=== PATIENT | male | born 1950 | race African-American/Black ===

== ENCOUNTER 2017-03-23 20:32 | Inpatient (IN) | payer OTHER, MEDICAID ==
[~2017-03-23] VITALS: Ht 177.8 cm; Wt 135.6 kg
[2017-03-23] MEDS: NACL 0.9% 1,000 ML IV SCH (00:50)
[2017-03-23 20:41] VITALS: BP 158/75
--- NOTE | 2017-03-23 21:05 | NUR ---
PT PLACED IN BED 3 BY EMS.
[2017-03-23] MEDS ORDERED: VANCOMYCIN 1,000 MG in DEXTROSE 5% 250 ML IV ONE (21:40)
[2017-03-23] MEDS ORDERED: LEVOFLOXACIN 750 MG/D5W PREMIX 150 ML IV ONE (21:40)
[2017-03-23] MEDS ORDERED: methylPREDNISolone SS 125 MG in WATER STERILE 2 ML IV ONE (22:15)
--- NOTE | 2017-03-23 22:30 | NUR ---
66Y/M BIBA C/O SOB. ALLERGY TO IBUPROFEN, PMH ASHTMAM DM, HTN, EMPHASEMA. PT IS BROUGHT IN W/ NC 4L, O2 SAT AT 98% RR EVEN AND UNLABORED, DEEP RESPIRATIONS NOTED. PT IS TALKING TO STAFF IN FULL COMPLETE SENTENCES. BL BREATH SOUNDS CLEAR THROUGHOUT. PT IN BED SIDE RAILS UP X2, ER MD AWARE OF PT STATUS.
[2017-03-23] MEDS ORDERED: LISI-420 PO (22:39)
[2017-03-23] MEDS ORDERED: GABA300C PO (22:39)
[2017-03-23] MEDS ORDERED: ACET-2858 PO (22:39)
[2017-03-23 22:50] LABS: HEMATOCRIT 23.7 % (36-52); MEAN CORPUSCULAR HEMOGLOBIN 25 pg (27-31); MEAN CORPUSCULAR HGB CONC 31 g/dL (33-37); MEAN CORPUSCULAR VOLUME 80 fL (80-94); PLATELET COUNT (AUTO) 164 K/uL (140-450); RED BLOOD CELL COUNT(AUTO) 2.95 MIL/uL (4.20-6.10); RED CELL DISTRIBUTION WIDTH 18.3 % (11.6-13.7); WHITE BLOOD COUNT (AUTO) 6.4 K/uL (4.8-10.8)
[2017-03-23] MEDS ORDERED: VANCOMYCIN 1,000 MG VIAL ONE (22:53)
[2017-03-23 22:55] LABS: ALBUMIN 2.9 g/dL (3.4-5.0); ANION GAP 13.2 (8-16); CARBON DIOXIDE 25.2 mmol/L (21-32); CREATININE 3.7 mg/dL (0.7-1.3); TOTAL BILIRUBIN 0.1 mg/dL (0.0-1.0)
[2017-03-23 23:06] LABS: POTASSIUM 5.4 mmol/L (3.5-5.1)
[2017-03-23] MEDS ORDERED: ACETAMINOPHEN 325 MG TAB PO PRN (23:10)
[2017-03-23] MEDS ORDERED: DEXTROSE 50% 50 ML SYR IVP PRN (23:10)
[2017-03-23] MEDS ORDERED: ONDANSETRON 4 MG/2 ML VIAL IVP PRN (23:10)
[2017-03-23] MEDS ORDERED: ALBUTEROL SULFATE/IPRATROPIU 3 ML SOL IH PRN (23:10)
[2017-03-23 23:18] LABS: HEMOGLOBIN 7.4 g/dL (12.0-18.0)
[2017-03-23 23:19] LABS: EOSINOPHILS % (MANUAL) 2 % (0-4); LYMPHOCYTES % (MANUAL) 8 % (20-46); MONOCYTES % (MANUAL) 6 % (5-12)
--- NOTE | 2017-03-23 23:30 | NUR ---
PT IN BED, TALKING TO STAFF, STATES HE IS NOT IN ANY PAIN, DENIES SOB WHILE ON OXYGEN, PT ELAINE LOCKWO[facility], WILL TRANSPORT TO FLOOR WHEN BED AVAILABLE.
[2017-03-23 23:43] LABS: APPEARANCE,URINE SL CLOUDY (CLEAR); BILIRUBIN,URINE NEGATIVE (NEGATIVE); BLOOD, URINE 3+ (NEGATIVE); COLOR,URINE YELLOW (YELLOW); LEUKOCYTE ESTERASE ,URINE NEGATIVE (NEGATIVE); NITRITE, URINE NEGATIVE (NEGATIVE); UGLUCOSE NEGATIVE (NEGATIVE)
[2017-03-23 23:46] LABS: PROTHROMBIN TIME 11.4 secs (10.8-13.4)
[2017-03-23 23:52] LABS: FREE T4 (FREE THYROXINE) 0.75 ng/dL (0.76-1.46); MAGNESIUM 1.3 mg/dL (1.8-2.4); PHOSPHORUS 4.6 mg/dL (2.5-4.9); THYROID STIMULATING HORMONE 0.82 uIU/mL (0.34-3.74)
[2017-03-24] VITALS: BP 135/65
[2017-03-24] LABS: RBC,URINE TOO NUMEROUS TO COUN /HPF (0-5); URINE AMORPHOUS URATE 2+ /HPF (None Seen); WBC,URINE 0-5 (RARE) /HPF (0-5)
[2017-03-24 00:01] LABS: HYALINE CASTS, URINE 0-10 /LPF (None Seen)
--- NOTE | 2017-03-24 00:05 | NUR ---
ADMITTED PT FROM ER VIA [facility]. RECEIVED REPORT FROM ER NURSE AT BEDSIDE. AAOX4. IV TO RIGHT AC WITH LEVAQUIN AT 100ML/HR. NO DISTRESS NOTED. ORIENTED PT TO THE ROOM. DISCUSSED PLAN OF CARE, PT VERBALIZED UNDERSTANDING. SAFETY PRECAUTION IN PLACE. CALL LIGHT WITHIN REACH. WILL CONTINUE TO MONITOR.
--- NOTE | 2017-03-24 00:10 | NUR ---
RECEIVED CRITICAL LAB TROPONIN 0.382. REPORTED TO DR. POWELL. TO SEE PT.
[2017-03-24 00:12] LABS: BARBITURATE, URINE NEG. ng/ml (NEG <=200); BENZODIAZEPINE, URINE NEG. ng/mL (NEG <=200); CANNABINOID, URINE NEG. ng/mL (NEG <=50); COCAINE, URINE NEG. ng/mL (NEG <=300); OPIATE, URINE NEG. ng/mL (NEG <=2000); PHENCYCLIDINE SCREEN,URINE NEG. ng/mL (NEG <=25)
[2017-03-24] MEDS ORDERED: HEPARIN PER PHARMACY MC PRN (00:15)
--- NOTE | 2017-03-24 00:20 | NUR ---
FLOOR NURSE GIVEN VANCOMYCIN TO START ON FLOOR WHEN LEVAQUIN IS DONE RUNNING.
--- NOTE | 2017-03-24 00:20 | NUR ---
Patient will be admitted to care of [facility] . Admited to TELE. Will go to room 123B. Belongings list completed. Report to BECCA.
--- NOTE | 2017-03-24 00:45 | NUR ---
PT C/O PAIN TO IV SITE RIGHT AC. D/C IV LINE. IV CANNULA INTACT. INSERTED NEW IV LINE TO RIGHT HAND. GOOD BLOOD RETURN AND FLUSH. PROCEDURE TOLERATED WELL.
[2017-03-24] MEDS ORDERED: PIPERACILLIN/TAZOBACTAM 3.375 GM VIAL IV ONE (01:15)
[2017-03-24] MEDS: PIPER/TAZO 3.375GM/D5W PREMIX 50 ML IV SCH ×4 (01:23→17:32)
--- NOTE | 2017-03-24 01:50 | NUR ---
INSERTED IV LINE TO RIGHT THUMB FOR HEPARIN DRIP. GOOD BLOOD RETURN AND FLUSH. PROCEDURE TOLERATED WELL.
[2017-03-24] MEDS: hePARIN / DEXT 5% PREMIX 250 ML IV SCH ×3 (02:20→21:11)
[2017-03-24 04:00] VITALS: BP 138/88
--- NOTE | 2017-03-24 04:00 | NUR ---
PT ACCIDENTALLY PULLED OUT IV LINE TO RIGHT HAND. CANNULA INTACT. REINSERTED NEW IV LINE TO RIGHT HAND #22G. GOOD BLOOD RETURN AND FLUSH. PT TOLERATED PROCEDURE WELL.
[2017-03-24] MEDS: methylPREDNISolone SS 125 MG/2 ML VIAL IVP SCH ×3 (04:25→21:16)
--- NOTE | 2017-03-24 04:30 | NUR ---
PT REFUSED SCD'S. EXPLAINED THE USE/BENEFITS OF USING SCD'S BUT STILL PT REFUSED.
[2017-03-24] MEDS: INSULIN LISPRO SLIDING SCALE 100 UNITS/ML VIAL SUBQ PRN ×4 (06:25→21:13)
[2017-03-24 06:41] LABS: CARBON DIOXIDE 23.7 mmol/L (21-32); CREATININE 3.8 mg/dL (0.7-1.3)
--- NOTE | 2017-03-24 06:45 | NUR ---
REPORTED MAG LEVEL 1.[address] JUAREZ. ORDERED MAG OX 800 MG PO ONCE. ORDER CARRIED OUT.
[2017-03-24 06:46] LABS: HEMATOCRIT 24.1 % (36-52); HEMOGLOBIN 7.4 g/dL (12.0-18.0); MEAN CORPUSCULAR HEMOGLOBIN 25 pg (27-31); MEAN CORPUSCULAR HGB CONC 31 g/dL (33-37); MEAN CORPUSCULAR VOLUME 80 fL (80-94); PLATELET COUNT (AUTO) 160 K/uL (140-450); RED BLOOD CELL COUNT(AUTO) 3.01 MIL/uL (4.20-6.10); RED CELL DISTRIBUTION WIDTH 18.3 % (11.6-13.7); WHITE BLOOD COUNT (AUTO) 6.9 K/uL (4.8-10.8)
[2017-03-24 06:49] LABS: CHOL/HDL RATIO 2.2 (1-4.5); MAGNESIUM 1.2 mg/dL (1.8-2.4); PHOSPHORUS 4.6 mg/dL (2.5-4.9)
[2017-03-24] MEDS: BLOOD GLUCOSE MONITORING 1 DEV DEV FS SCH ×4 (07:00→21:00)
--- NOTE | 2017-03-24 07:05 | NUR ---
ENDORSED PT TO DAY SHIFT NURSE. PT IN STABLE CONDITION.
--- NOTE | 2017-03-24 07:06 | NUR ---
RECEIVED REPORT FROM TALLOW REFINER NURSE. PATIENT IN STABLE CONDITION, NO DISTRESS NOTED. PATIENT IS SITTING IN BED WATCHING TV. AAOX4, CALM, COOPERATIVE, SKIN COLOR APPROPRIATE TO ETHNICITY, WARM TO TOUCH. RESPIRATIONS EVEN, UNLABORED, ON O2 4L/MIN VIA NC. SKIN IS INTACT THROUGHOUT BODY. IV SITES ARE INTACT, PATENT, AND INFUSING IVF AND HEPARIN DRIP PER ORDERS. LUNGS DIMINISHED ON ALL LOBES. ABDOMEN SOFT, OBESE. PATIENT ABLE TO AMBULATE TO BEDSIDE COMMODE AND BACK TO BED WITH ASSISTANCE. REVIEWED PLAN OF CARE WITH PATIENT. PATIENT VERBALIZED UNDERSTANDING. SAFETY MEASURES IN PLACE, CALL LIGHT WITHIN REACH. WILL CONTINUE TO MONITOR.
[2017-03-24] MEDS: ALBUTEROL SULFATE/IPRATROPIU 3 ML SOL IH SCH ×3 (07:27→18:37)
[2017-03-24 07:53] LABS: POTASSIUM 6.7 mmol/L (3.5-5.1)
[2017-03-24 08:00] VITALS: BP 149/85
[2017-03-24] MEDS ORDERED: MAGNESIUM OXIDE 400 MG TAB PO SCH (08:00)
[2017-03-24 08:26] LABS: LYMPHOCYTES % (MANUAL) 18 % (20-46)
[2017-03-24 08:27] LABS: MONOCYTES % (MANUAL) 7 % (5-12)
--- NOTE | 2017-03-24 08:45 | NUR ---
PT REFUSED INCENTIVE SPIROMETER.
[2017-03-24] MEDS ORDERED: LISINOPRIL 20 MG TAB PO SCH (09:00)
[2017-03-24] MEDS: LACTOBACILLUS RHAMNOSUS GG 1 EACH CAP PO SCH (09:05)
[2017-03-24] MEDS: ATORVASTATIN 20 MG TAB PO SCH (09:05)
[2017-03-24] MEDS: DOCUSATE SODIUM 100 MG GELCAP PO SCH ×2 (09:05→21:17)
[2017-03-24] MEDS: GABAPENTIN 300 MG CAP PO SCH ×3 (09:06→16:56)
[2017-03-24] MEDS: METOPROLOL 25 MG TAB PO SCH ×2 (09:06→21:17)
[2017-03-24] MEDS: NACL 0.9% 1,000 ML IV SCH ×2 (09:07→19:08)
--- NOTE | 2017-03-24 09:10 | NUR ---
PATIENT SITTING IN BED WATCHING TV. NO DISTRESS NOTED. DENIES ANY PAIN. ABLE TO GET OUT OF BED AND TO THE BEDSIDE COMMODE WITH ASSISTANCE. ASSISTED PATIENT IN CHANGING GOWNS. SCHEDULED MEDICATIONS DUE GIVEN. SAFETY MEASURES IN PLACE, CALL LIGHT WITHIN REACH. WILL CONTINUE TO MONITOR.
--- NOTE | 2017-03-24 09:43 | NUR ---
PATIENT HAS BEEN SCREENED AND CATEGORIZED HIGH NUTRITION RISK. PATIENT WILL BE SEEN WITHIN 1-2 DAYS OF ADMISSION. -03/24/[address]
--- NOTE | 2017-03-24 11:00 | NUR ---
RADIOLOGIST AT BEDSIDE PERFORMING ULTRASOUND. WILL CONTINUE TO MONITOR.
--- NOTE | 2017-03-24 11:10 | NUR ---
LAB CALLED TO REPORT PTT:60.1 ON 0820 LAB DRAW THIS MORNING. PHARMACY CHANGED HEPARIN DRIP PROTOCOL TO ACS PROTOCOL INSTEAD OF DVT PROTOCOL SINCE PATIENT DOES NOT HAVE DVT. NOTIFIED PHARMACY OF MOST RECENT PTT VALUE. CHANGED HEPARIN DRIP TO 1000 UNITS/HR, 10 ML/HR PER ISHMAEL IN PHARMACY. SAFETY MEASURES IN PLACE, CALL LIGHT WITHIN REACH. WILL CONTINUE TO MONITOR.
[2017-03-24 12:00] VITALS: BP 158/73
--- NOTE | 2017-03-24 12:40 | NUR ---
PATIENT SITTING IN BED WATCHING TV. NO DISTRESS NOTED. COMPLAINS OF LOW BACK PAIN /. WILL MEDICATE WITH NORCO PER ORDERS. SCHEDULED MEDICATIONS DUE GIVEN. SAFETY MEASURES IN PLACE, CALL LIGHT WITHIN REACH. WILL CONTINUE TO MONITOR.
[2017-03-24] MEDS: HYDROcodone/APAP 10/325 MG 1 TAB TAB PO PRN (13:00)
--- NOTE | 2017-03-24 13:40 | NUR ---
RADIOLOGY CALLED FOR A CRITICAL RESULT FOR VENOUS ULTRASOUND. NOTIFIED DR. JUAREZ AND DR. JUAREZ TO SEE PATIENT. WILL CONTINUE TO MONITOR.
--- NOTE | 2017-03-24 15:23 | NUR ---
03/24/17 RD INITIAL ASSESSMENT COMPLETED PLEASE REFER TO NUTRITION ASSESSMENT UNDER CARE ACTIVITY FOR ESTIMATED NUTRITIONAL NEEDS. 1.PT TO CONTINUE WITH 60 GM CCHO DIET 2.RD TO FOLLOW-UP 2-3 DAYS, HIGH RISK MARIA DEL CARMEN [address]
[2017-03-24 16:00] VITALS: BP 153/77
--- NOTE | 2017-03-24 16:45 | NUR ---
PATIENT LYING IN BED SLEEPING, AROUSABLE BY VOICE. NO DISTRESS NOTED. DENIES ANY PAIN CONDITION UNCHANGED. SCHEDULED MEDICATIONS DUE. WILL CONTINUE TO MONITOR.
--- NOTE | 2017-03-24 17:30 | NUR ---
DR. ROJAS AT BEDSIDE REVIEWING PLAN OF CARE WITH PATIENT. SCHEDULED MEDICATIONS DUE GIVEN. WILL CONTINUE TO MONITOR.
[2017-03-24] MEDS ORDERED: SODIUM POLYSTYRENE 15 GM/60 ML UDBTL PO SCH ×2 (18:00→23:35)
[2017-03-24] MEDS ORDERED: DEXTROSE 50% 50 ML SYR IVP SCH (18:00)
[2017-03-24] MEDS ORDERED: CALCIUM GLUCONATE 500 MG TAB PO SCH (18:00)
[2017-03-24] MEDS ORDERED: INSULIN LISPRO 100 UNITS/ML VIAL SUBQ SCH (18:00)
[2017-03-24] MEDS ORDERED: CALCIUM GLUCONATE 10% 1,000 MG in DEXTROSE 5% 50 ML IV SCH (18:45)
[2017-03-24] MEDS ORDERED: CALCIUM GLUCONATE 10% 1,000 MG in NACL 0.9% 100 ML IV SCH (18:45)
--- NOTE | 2017-03-24 19:00 | NUR ---
NEW ORDERED MEDICATIONS BY DR. JUAREZ ADMINISTERED PER ORDERS. PATIENT TOLERATED WELL. PAIN WITHIN TOLERABLE AT THIS TIME. SAFETY MEASURES IN PLACE, CALL LIGHT WITHIN REACH. WILL CONTINUE TO MONITOR.
--- NOTE | 2017-03-24 19:20 | NUR ---
GAVE REPORT TO MATERIALS ANALYST NURSE FOR CONTINUITY OF CARE. PATIENT IN STABLE CONDITION.
--- NOTE | 2017-03-24 19:25 | NUR ---
RECEIVED REPORT FROM DAY SHIFT NURSE. PT IN BED WATCHING TV. NO C/O PAIN OR DISCOMFORT. IV TO RIGHT HAND WITH NS 100ML/HR INFUSING WELL. IV TO RIGHT THUMB WITH HEPARIN DRIP AT 10ML/HR, INFUSING WELL. DISCUSSED PLAN OF CARE, PT VERBALIZED UNDERSTANDING. CALL LIGHT WITHIN REACH. WILL CONTINUE TO MONITOR.
[2017-03-24 20:00] VITALS: BP 148/82
[2017-03-24 20:24] LABS: ANION GAP 12.7 (8-16); CARBON DIOXIDE 24.1 mmol/L (21-32); CREATININE 3.8 mg/dL (0.7-1.3); POTASSIUM 5.8 mmol/L (3.5-5.1)
[2017-03-24] MEDS: INSULIN DETEMIR 100 UNITS/ML 10 ML VIAL SUBQ SCH (21:14)
--- NOTE | 2017-03-24 21:25 | NUR ---
STARTED NEW BAG OF HEPARIN DRIP. CALLED DR. POWELL REGARDING HEPARIN DRIP RATE. PER DR. POWELL, CONTINUE CURRENT DRIP 10 ML/HR AND WILL WAIT FOR DR. JENKINS TO SEE THE PT.
--- NOTE | 2017-03-24 22:30 | NUR ---
PT IN BED, WATCHING TV. PT ASKED FOR SNACK. SNACK PROVIDED TO PT. CALL LIGHT WITHIN REACH.
[2017-03-25] VITALS (7 sets, daily range): BP systolic 136–168; BP diastolic 68–93
--- NOTE | 2017-03-25 01:20 | NUR ---
PT SLEEPING. NO S/S PAIN OR DISCOMFORT. CALL LIGHT WITHIN REACH.
--- NOTE | 2017-03-25 04:05 | NUR ---
PT AWAKE AND WENT TO BEDSIDE COMMODE ASSISTED BY TAP AND DIE MAKER TECHNICIAN. NO C/O PAIN. NO SOB NOTED. CALL LIGHT WITHIN REACH.
[2017-03-25] MEDS: methylPREDNISolone SS 40 MG/ML VIAL IVP SCH ×3 (05:24→20:29)
[2017-03-25] MEDS: NACL 0.9% 1,000 ML IV SCH ×2 (05:24→15:08)
[2017-03-25] MEDS: BLOOD GLUCOSE MONITORING 1 DEV DEV FS SCH ×4 (05:47→20:29)
--- NOTE | 2017-03-25 05:50 | NUR ---
BLOOD SUGAR CHECKED 148. NO INSULIN COVERAGE NEEDED.
[2017-03-25] MEDS: ALBUTEROL SULFATE/IPRATROPIU 3 ML SOL IH SCH ×3 (07:04→19:00)
[2017-03-25 07:19] LABS: HEMATOCRIT 22.9 % (36-52); HEMOGLOBIN 7.3 g/dL (12.0-18.0); MEAN CORPUSCULAR HEMOGLOBIN 25 pg (27-31); MEAN CORPUSCULAR HGB CONC 32 g/dL (33-37); MEAN CORPUSCULAR VOLUME 79 fL (80-94); PLATELET COUNT (AUTO) 213 K/uL (140-450); RED BLOOD CELL COUNT(AUTO) 2.89 MIL/uL (4.20-6.10); RED CELL DISTRIBUTION WIDTH 18.1 % (11.6-13.7); WHITE BLOOD COUNT (AUTO) 13.8 K/uL (4.8-10.8)
--- NOTE | 2017-03-25 07:20 | NUR ---
ENDORSED PT TO DAY SHIFT NURSE. PT IN STABLE CONDITION.
[2017-03-25 07:34] LABS: ANION GAP 15.1 (8-16); CARBON DIOXIDE 22.9 mmol/L (21-32); CREATININE 3.5 mg/dL (0.7-1.3)
[2017-03-25 08:12] LABS: LYMPHOCYTES % (MANUAL) 7 % (20-46); MONOCYTES % (MANUAL) 7 % (5-12)
[2017-03-25] MEDS: hePARIN / DEXT 5% PREMIX 250 ML IV SCH (09:18)
--- NOTE | 2017-03-25 09:30 | NUR ---
FAXED INITIAL REVIEW TO [phone]. CALLED [employer] AND WAS TOLD TO FAX TO EITHER [phone] OR [phone], THE CM IS LILIANA [phone].
[2017-03-25] MEDS: ATORVASTATIN 20 MG TAB PO SCH (09:38)
[2017-03-25] MEDS: GABAPENTIN 300 MG CAP PO SCH ×3 (09:38→17:39)
[2017-03-25] MEDS: LACTOBACILLUS RHAMNOSUS GG 1 EACH CAP PO SCH (09:38)
[2017-03-25] MEDS: METOPROLOL 25 MG TAB PO SCH (09:38)
[2017-03-25] MEDS: DOCUSATE SODIUM 100 MG GELCAP PO SCH ×2 (09:39→20:28)
--- NOTE | 2017-03-25 09:41 | NUR ---
PATIENT LYING IN BED WATCHING TV. NO DISTRESS NOTED. DENIES ANY PAIN AT THIS TIME. SCHEDULED MEDICATIONS DUE GIVEN. HEPARIN DRIP ADJUSTED PER PROTOCOL. SAFETY MEASURES IN PLACE, CALL LIGHT WITHIN REACH. WILL CONTINUE TO MONITOR.
[2017-03-25 10:07] LABS: FOLIC ACID 7.9 ng/mL (>3.0)
[2017-03-25] MEDS ORDERED: CALCIUM GLUCONATE 500 MG TAB PO SCH (11:15)
[2017-03-25] MEDS: HYDROcodone/APAP 10/325 MG 1 TAB TAB PO PRN ×3 (11:24→23:48)
[2017-03-25] MEDS: INSULIN LISPRO SLIDING SCALE 100 UNITS/ML VIAL SUBQ PRN (11:33)
[2017-03-25] MEDS ORDERED: CALCIUM GLUCONATE 10% 1,000 MG in NACL 0.9% 100 ML IV SCH (12:30)
--- NOTE | 2017-03-25 13:00 | NUR ---
PATIENT OFF UNIT AT RADIOLOGY FOR CT SCAN OF ABD/PELVIS. WILL CONTINUE TO MONITOR.
[2017-03-25] MEDS: FERRIC GLUCONATE 125 MG in NACL 0.9% 100 ML IV SCH (13:20)
[2017-03-25] MEDS: SODIUM POLYSTYRENE 15 GM/60 ML UDBTL PO SCH ×2 (13:21→17:40)
--- NOTE | 2017-03-25 13:43 | NUR ---
PATIENT BACK FROM RADIOLOGY FOR CT ABDOMEN/PELVIS. DENNISON CATHETER INSERTED, NO RESISTANCE MET THROUGHOUT INSERTION. DRAINING YELLOW/ORANGE URINE, THEN 10 MINUTES LATER DRAINING BLOOD IN URINE. NOTIFIED DR. ANN MD SAW PATIENT. AWAITING FOR LAB SPECIALIST CONSULT LATER TODAY. WILL CONTINUE TO MONITOR.
--- NOTE | 2017-03-25 15:00 | NUR ---
PATIENT LYING IN BED SLEEPING, AROUSABLE BY VOICE. NO DISTRESS NOTED. DENIES ANY PAIN AT THIS TIME. SAFETY MEASURES IN PLACE, CALL LIGHT WITHIN REACH. WILL CONTINUE TO MONITOR.
--- NOTE | 2017-03-25 17:00 | NUR ---
ASSISTED PATIENT BACK FROM BEDSIDE COMMODE AND BACK TO BED. SAFETY MEASURES IN PLACE, CALL LIGHT WITHIN REACH. WILL CONTINUE TO MONITOR.
--- NOTE | 2017-03-25 18:00 | NUR ---
TOUR BUS DRIVER CONSULT AT BEDSIDE. WILL CONTINUE TO MONITOR.
--- NOTE | 2017-03-25 19:15 | NUR ---
GAVE REPORT TO RISK REDUCTION COUNSELOR NURSE FOR CONTINUITY OF CARE. PATIENT IN STABLE CONDITION.
[2017-03-25 19:16] LABS: ANION GAP 13.7 (8-16); CARBON DIOXIDE 24.9 mmol/L (21-32); CREATININE 3.4 mg/dL (0.7-1.3); POTASSIUM 5.6 mmol/L (3.5-5.1)
--- NOTE | 2017-03-25 19:20 | NUR ---
RECEIVE DPT IN STABLE CONDITION FROM AM NURSE. ON TELE MONITOR. AWAKE,ALERT AND ORIENTED X4. ON O23L/NC. O2 SAT 100%. WITH OCCASIONAL NON PRODUCTIVE COUGH. LUNGS SOUNDS DIMINISHED. WITH GEN WEAKNESS BLE. CAN BE UP WITH ASSISTANCE TO THE BSC. WITH HL ON RT HAND #22 AND RT THUMB #22. DENNISON CATHETER DRAINING WITH BLOODY URINE. WITH SMALL BLOOD CLOTS. PLAN OF CARE DISCUSSED WITH PT AND VERBALIZED UNDERSTANDING. BED ON LOW POSITION, FREQUENT ROUNDS NEEDED . CALL LIGHT PLACED WITHIN EASY REACH. WILL CONTINUE TO MONITOR.
--- NOTE | 2017-03-25 19:35 | NUR ---
DR. TURNER HERE .HE SAID PT STILL NEED TO CONTINUE THE HEPARIN DRIP . SO PAGED DR. POWELL SO SHE CAN TALKED TO DR. TURNER.
--- NOTE | 2017-03-25 19:53 | NUR ---
1899 PATIENT REFUSED HHNTX. PT SHOWED SOB AND BS ARE WHEEZING AND DECREASED AT BASES. I LET DR TURNER KNOW PT REFUSED HHNTX
[2017-03-25] MEDS ORDERED: hePARIN / DEXT 5% PREMIX 250 ML IV SCH ×2 (20:00→22:25)
[2017-03-25] MEDS ORDERED: HEPARIN PER PHARMACY MC PRN (20:00)
--- NOTE | 2017-03-25 20:30 | NUR ---
STARTED A NEW IV ACCESS ON THE LT WRIST #24. BUT AFTER A WHILE PT GOT UP AND ACCIDENTALLY PULLED OUT.
[2017-03-25] MEDS: INSULIN DETEMIR 100 UNITS/ML 10 ML VIAL SUBQ SCH (21:24)
[2017-03-25] MEDS ORDERED: LEVOFLOXACIN 500 MG/D5W PREMIX 100 ML IV SCH (22:00)
--- NOTE | 2017-03-25 22:00 | NUR ---
PT ACCIDENTALLY PULLED OUT IV ON LT WRIST WHILE GETTING UP IN BED. ANTIBIOTICS GIVEN ON THE RT THUMB. INFUSING AT THIS TIME.
--- NOTE | 2017-03-25 23:00 | NUR ---
CLARIFIED WITH PHARMACY REGARDING THE HEPARIN BOLUS. THEY WILL ORDER A X1 ORDERED.
[2017-03-26] MEDS: NACL 0.9% 1,000 ML IV SCH ×3 (01:08→21:08)
--- NOTE | 2017-03-26 01:22 | NUR ---
PT HAS BEEN HAVING LOOSE BM. HAS BEEN ASSISTED TO BSC. CLEANED AND KEPT DRY.
--- NOTE | 2017-03-26 01:34 | NUR ---
TALKED TO DR. POWELL REGARDING PT HEPARIN DRIP AND PT IS HAVING HEMATURIA ON THE DENNISON OUTPUT. SHE SAID SHE IS AWARE OF IT AND IT IS OK TO CONTINUE WITH THE HEPARIN DRIP.
--- NOTE | 2017-03-26 02:03 | NUR ---
THE ONLY IV ACCESS ON THE RT THUMB #22. WAS PULLED OUT. WILL TRY TO START A NEW IV ACCESS.
--- NOTE | 2017-03-26 03:37 | NUR ---
TALKED TO DR. POWELL ABOUT THE DIFFICULTY STARTING A NEW IV ACCESS ON PT. HE SAID OK TO START IV ON THE FOOT. SHE WILL MAKE AN ORDER.
--- NOTE | 2017-03-26 04:00 | NUR ---
DENNISON CATH WAS FLUSHED WITH NS Q 4HRS, URINE OUTPUT IS STILL BLOOD TINGED BUT NO CLOTS NOTED. NO C/O ANY PAIN .
--- NOTE | 2017-03-26 04:05 | NUR ---
ORDERED , GARCIA ABLE TO START IV ACCESS ON THE RT FOOT G#22. CLEAR AND PATENT. HEPARIN DRIP RESTARTED ON THIS IV SITE.
[2017-03-26 04:50] VITALS: BP 180/88
[2017-03-26] MEDS: amLODIPine 5 MG TAB PO SCH (05:39)
--- NOTE | 2017-03-26 05:39 | NUR ---
BP ELEVATED 180/88. NORVASC 5MG PO GIVEN ORDERED.
[2017-03-26] MEDS: BLOOD GLUCOSE MONITORING 1 DEV DEV FS SCH ×4 (06:07→20:33)
--- NOTE | 2017-03-26 06:07 | NUR ---
BLOOD SUGAR WAS CHECKED RESULT 140. NO INSULIN NEEDED.
[2017-03-26] MEDS: ALBUTEROL SULFATE/IPRATROPIU 3 ML SOL IH SCH ×3 (06:58→18:29)
--- NOTE | 2017-03-26 07:18 | NUR ---
ENDORSED PT IN STABLE CONDITION TO AM NURSE.
--- NOTE | 2017-03-26 07:20 | NUR ---
RECEIVED PATIENT REPORT AT BEDSIDE. PATIENT IS IN STABLE CONDITION DURING THIS TIME. PATIENT ON 2 LITERS O2 WITH A SATURATION OF 96%. PATIENT SHOWS NO SIGNS OF RESPIRATORY DISTRESS OR CHEST PAIN. HEPARIN DRIP 1000 U / HR ON THE RIGHT FOOT. PATIENT ON TELE MONITOR. PATIENT HAS DENNISON CATHETER IN PLACE, DRAINING PINK-TINGED URINE OUTPUT. BED LOWERED AND CALL LIGHT IN REACH. WILL CONTINUE TO MONITOR PATIENT.
[2017-03-26 07:53] LABS: ANION GAP 11.4 (8-16); CARBON DIOXIDE 27.5 mmol/L (21-32); CREATININE 3.1 mg/dL (0.7-1.3)
[2017-03-26 07:56] LABS: HEMATOCRIT 23.5 % (36-52); HEMOGLOBIN 7.4 g/dL (12.0-18.0); MEAN CORPUSCULAR HEMOGLOBIN 26 pg (27-31); MEAN CORPUSCULAR HGB CONC 32 g/dL (33-37); MEAN CORPUSCULAR VOLUME 81 fL (80-94); PLATELET COUNT (AUTO) 209 K/uL (140-450); RED BLOOD CELL COUNT(AUTO) 2.89 MIL/uL (4.20-6.10); RED CELL DISTRIBUTION WIDTH 18.5 % (11.6-13.7); WHITE BLOOD COUNT (AUTO) 11.2 K/uL (4.8-10.8)
[2017-03-26 08:00] VITALS: BP 150/87
[2017-03-26] MEDS: ATORVASTATIN 20 MG TAB PO SCH (08:26)
[2017-03-26] MEDS: LACTOBACILLUS RHAMNOSUS GG 1 EACH CAP PO SCH (08:26)
[2017-03-26] MEDS: GABAPENTIN 300 MG CAP PO SCH ×3 (08:27→16:07)
[2017-03-26] MEDS: DOCUSATE SODIUM 100 MG GELCAP PO SCH ×2 (08:27→20:33)
[2017-03-26] MEDS: CARVEDILOL 3.125 MG TAB PO SCH ×2 (08:27→20:34)
[2017-03-26 08:30] LABS: POTASSIUM 5.9 mmol/L (3.5-5.1)
[2017-03-26] MEDS ORDERED: CARVEDILOL 3.125 MG TAB PO SCH (09:00)
[2017-03-26 10:20] LABS: EOSINOPHILS % (MANUAL) 2 % (0-4); LYMPHOCYTES % (MANUAL) 5 % (20-46); MONOCYTES % (MANUAL) 10 % (5-12)
--- NOTE | 2017-03-26 10:57 | NUR ---
IV LINE ON THE RIGHT FOOT ACCIDENTALLY PULLED OUT BY THE PATIENT. WILL TRY TO ESTABLISH A NEW LINE
[2017-03-26] MEDS ORDERED: MAGNESIUM CITRATE 300 ML BTL PO SCH (11:00)
[2017-03-26 12:00] VITALS: BP 153/85
[2017-03-26] MEDS: FERRIC GLUCONATE 125 MG in NACL 0.9% 100 ML IV SCH (12:58)
[2017-03-26] MEDS ORDERED: hePARIN / DEXT 5% PREMIX 250 ML IV SCH (13:00)
[2017-03-26] MEDS: INSULIN LISPRO SLIDING SCALE 100 UNITS/ML VIAL SUBQ PRN (13:01)
--- NOTE | 2017-03-26 13:15 | NUR ---
PT REFUSED HHN TX
[2017-03-26] MEDS: CALCIUM GLUCONATE 10% 1,000 MG in NACL 0.9% 100 ML IV SCH ×2 (15:06→20:31)
--- NOTE | 2017-03-26 15:27 | NUR ---
CM NOTE CONCURRENT REVIEW FAXED TO [phone], ATTN: LILIANA #[phone].
[2017-03-26 16:00] VITALS: BP 177/89
--- NOTE | 2017-03-26 16:00 | NUR ---
NEW IV LINE STARTED ON THE LEFT HAND. PER MARCO FROM PHARMACY. RESTART HEPARIN DRIP WITH INITIAL BOLUS AND INITIAL RATE. WILL INFORM THE DOCTOR
[2017-03-26] MEDS ORDERED: hydrALAZINE 20 MG/ML VIAL IVP SCH (17:30)
--- NOTE | 2017-03-26 19:10 | NUR ---
GAVE PATIENT REPORT AT BEDSIDE AND ENDORSED CARE TO INCOMING PASSPORT APPLICATION EXAMINER NURSE. PATIENT IS IN STABLE CONDITION. PATIENT SHOWS NO SIGNS OF RESPIRATORY DISTRESS.
--- NOTE | 2017-03-26 19:20 | NUR ---
RECEIVED PT IN STABLE CONDITION FROM AM NURSE. AWAKE, ALERT AND ORIENTED X4. ON TELE MONITOR. NO C/O ANY PAIN AT THIS TIME. WITH IV ACCESS ON LT HAND #22 AND RT AC #22. WILL CONTINUE IVF WHEN PT SETTLED IN BED. SKIN INTACT. WITH DENNISON CATH DRAINING TO VERY LIGHT PINK TINGED URINE, NO CLOTS NOTED. PLAN OF CARE DISCUSSED AND VERBALIZED UNDERSTANDING. BED ON LOW POSITION . CALL LIGHT PLACED WITHIN EASY REACH. FREQUENT ROUNDS NEEDED. WILL CONITNUE TO MONITOR.
[2017-03-26 20:00] VITALS: BP 164/76
[2017-03-26] MEDS: HYDROcodone/APAP 10/325 MG 1 TAB TAB PO PRN (20:40)
[2017-03-26] MEDS: INSULIN DETEMIR 100 UNITS/ML 10 ML VIAL SUBQ SCH (20:43)
--- NOTE | 2017-03-26 20:43 | NUR ---
BLOOD SUGAR 137. LEVEMIR INSULIN DUE GIVEN SUB Q. PROVIDED WITH SOME SNACKS. WILL CONTINUE TO MONITOR.
--- NOTE | 2017-03-26 22:00 | NUR ---
PT IS ASLEEP. NO S/S OF ANY DISCOMFORT NOR DISTRESS NOTED. ON O22L/NC.
[2017-03-26 23:50] VITALS: BP 118/62
--- NOTE | 2017-03-27 00:50 | NUR ---
DENNISON TUBING DISCONNECTED , TUBE CONNECT BACK . URINE OUTPUT STILL CLEAR AND NO CLOTS NOTED. BED WAS CHANGED .
[2017-03-27] MEDS: HYDROcodone/APAP 10/325 MG 1 TAB TAB PO PRN ×2 (03:34→09:47)
--- NOTE | 2017-03-27 04:00 | NUR ---
PT WITH PERIODS OF FORGETFULNESS AT TIMES.
[2017-03-27 04:05] VITALS: BP 147/70
[2017-03-27] MEDS: NACL 0.9% 1,000 ML IV SCH ×2 (05:20→07:08)
--- NOTE | 2017-03-27 06:00 | NUR ---
DENNISON OUTPUT IS GETTING CLEAR , SLIGHTLY PINK TINGED. NO CLOTS NOTED.
[2017-03-27] MEDS: BLOOD GLUCOSE MONITORING 1 DEV DEV FS SCH ×3 (06:35→17:11)
--- NOTE | 2017-03-27 07:10 | NUR ---
RECEIVED PATIENT REPORT AT BEDSIDE. PATIENT ASLEEP BUT AROUSABLE. NO S/S OF DISTRESS. NO SOB. PATIENT RECEIVING 3L O2 VIA NC. DENNISON CATHETER IN PLACE DRAINING PINK-TINGED URINE. IV LINE NOTED ON THE LEFT AC AND RIGHT HAND. PATIENT ON TELE MONITORING. BED LOWERED WITH CALL LIGHT WITHIN REACH. WILL CONTINUE TO MONITOR
--- NOTE | 2017-03-27 07:15 | NUR ---
ENDORSED PT IN STABLE CONDITION TO AM NURSE.
[2017-03-27 08:00] VITALS: BP 144/72
[2017-03-27] MEDS: ALBUTEROL SULFATE/IPRATROPIU 3 ML SOL IH SCH ×2 (08:07→13:00)
--- NOTE | 2017-03-27 08:08 | NUR ---
PT DOES NOT WANT BREATHING TX AT THIS TIME AND WANTS TO EAT BREAKFAST. PT SITTING ON SIDE OF BED WITHOUT ANY SIGNS OF SOB. WILL CONTINUE TO MONITOR.
[2017-03-27 08:12] LABS: ANION GAP 14.1 (8-16); CARBON DIOXIDE 25.9 mmol/L (21-32); CREATININE 2.6 mg/dL (0.7-1.3)
[2017-03-27] MEDS: GABAPENTIN 300 MG CAP PO SCH ×3 (09:26→17:11)
[2017-03-27] MEDS: ATORVASTATIN 20 MG TAB PO SCH (09:27)
[2017-03-27] MEDS: amLODIPine 5 MG TAB PO SCH (09:27)
[2017-03-27] MEDS: CARVEDILOL 3.125 MG TAB PO SCH (09:27)
[2017-03-27] MEDS: DOCUSATE SODIUM 100 MG GELCAP PO SCH (09:27)
--- NOTE | 2017-03-27 10:35 | NUR ---
PT IS ASLEEP BUT AROUSABLE AT THIS TIME. PT SHOWS NO SIGNS OF RESPIRATORY DISTRESS OR ANY PAIN AT THIS MOMENT. WILL CONTINUE TO MONITOR THE PATIENT.
[2017-03-27] MEDS: LACTOBACILLUS RHAMNOSUS GG 1 EACH CAP PO SCH (11:54)
[2017-03-27] MEDS: FERRIC GLUCONATE 125 MG in NACL 0.9% 100 ML IV SCH (11:56)
[2017-03-27 12:00] VITALS: BP 134/61
--- NOTE | 2017-03-27 12:11 | NUR ---
SPOKE WITH LILIANA ÁLVAREZ GAME MODERATOR/CM FOR THIS PATIENT AT [facility]. PHONE [phone]. I INFORMED HER THAT PATIENT WILL PROBABLY B GOING HOME TODAY WITH A DENNISON IN AND THAT HE WILL NEED HOME HEALTH. SHE SAID TO FAX MED LIST, ORDER AND DISCHARGE TO HER AT [phone]. I TOLD HER I DIDN'T HAVE THE ORDER OR DISCHARGE SUMMARY YET. FAXED CONCURRENT REVIEW TO HER AT [phone].
--- NOTE | 2017-03-27 13:19 | NUR ---
SPOKE WITH LILIANA FROM [employer]. SHE SAID THEY WILL SET UP HOME HEALTH WITH TEAM NURSES.
--- NOTE | 2017-03-27 13:49 | NUR ---
PT REFUSED BREATHING TX AT STATES HE WANTS TO BE LEFT ALONE TO SLEEP. PT IS NOT SOB AND NOT IN RESPIRATORY DISTRESS. PT REMAINS ON 2L NC.
[2017-03-27] MEDS ORDERED: DOCU-299 PO (14:23)
[2017-03-27] MEDS ORDERED: ATOR20TA40 PO (14:23)
[2017-03-27] MEDS ORDERED: CARV3.122 PO (14:23)
[2017-03-27] MEDS ORDERED: AMLO5TAB4 PO (14:23)
[2017-03-27] MEDS ORDERED: ACET-1182 PO (14:23)
--- NOTE | 2017-03-27 15:09 | NUR ---
AUTH FROM [employer] FOR [facility] TO HOME IS [id number]. INFORMED [facility].
[2017-03-27 16:00] VITALS: BP 134/75
--- NOTE | 2017-03-27 16:30 | NUR ---
O2 SATURATION IS 93% ON ROOM AIR. NO S/S OF DISTRESS NOTED.
--- NOTE | 2017-03-27 17:00 | NUR ---
PT EDUCATED ON HOW TO IRRIGATE HIS DENNISON CATHETER BY DEMONSTRATION. PT VERBALIZED UNDERSTANDING OF PROCEDURE. PT PROVIDED WITH SUPPLIES.
--- NOTE | 2017-03-27 18:15 | NUR ---
PATIENT DISCHARGED TO HOME. PATIENT PICKED UP BY [facility]. PT GIVEN DISCHARGE INSTRUCTION AND PRESCRIPTIONS. DENNISON CATHETER LEFT IN PLACE. PT VERBALIZED UNDERSTANDING. IV LINE DISCONTINUED. TELE LEADS TAKEN OFF PATIENT. PT LEFT WITH ALL BELONGINGS AND DISCHARGE PAPERS. PT LEFT IN STABLE CONDITION.
== END 2017-03-27 18:15 | disposition home health service (06) | DRG 682 ==
LOC: MED 20:32 → MTU 22:17
PROVIDERS: ADMIT Family Medicine Sports Medicine; ATTEND Family Medicine Sports Medicine
DX: N17.0 Acute kidney failure with tubular necrosis (principal); J96.21 Acute and chronic respiratory failure with hypoxia; I50.43 Acute on chronic combined systolic (congestive) and diastolic (congestive) heart failure; I82.412 Acute embolism and thrombosis of left femoral vein; E87.2 Acidosis; D68.59 Other primary thrombophilia; E11.22 Type 2 diabetes mellitus with diabetic chronic kidney disease; E11.40 Type 2 diabetes mellitus with diabetic neuropathy, unspecified; E11.51 Type 2 diabetes mellitus with diabetic peripheral angiopathy without gangrene; I13.0 Hypertensive heart and chronic kidney disease with heart failure and stage 1 through stage 4 chronic kidney disease, or unspecified chronic kidney disease; I24.8 Other forms of acute ischemic heart disease; J44.1 Chronic obstructive pulmonary disease with (acute) exacerbation; Z68.41 Body mass index [BMI] 40.0-44.9, adult; I42.9 Cardiomyopathy, unspecified; N18.4 Chronic kidney disease, stage 4 (severe); N13.30 Unspecified hydronephrosis; E87.5 Hyperkalemia; R31.29 Other microscopic hematuria; E61.1 Iron deficiency; E11.65 Type 2 diabetes mellitus with hyperglycemia; E66.01 Morbid (severe) obesity due to excess calories; D63.8 Anemia in other chronic diseases classified elsewhere; J40 Bronchitis, not specified as acute or chronic; F17.200 Nicotine dependence, unspecified, uncomplicated; M06.9 Rheumatoid arthritis, unspecified; Z88.6 Allergy status to analgesic agent; Z91.018 Allergy to other foods; Z99.81 Dependence on supplemental oxygen; Z85.51 Personal history of malignant neoplasm of bladder; Z91.19 Patient's noncompliance with other medical treatment and regimen; Z92.3 Personal history of irradiation; Z86.73 Personal history of transient ischemic attack (TIA), and cerebral infarction without residual deficits
CPT/HCPCS: 36415; 71010; 76770; 80048; 80053; 80305; 81001; 82607; 82728; 82746; 82948; 83036; 83540; 83735; 83880; 84100; 84439; 84443; 84484; 85025; 85045; 85610; 85730; 87040; 87081; 93005; 93925; 93970; 94640; 96365; 96375; 99285; J0360; J0610; J1644; J1815; J1956; J2543; J2916; J2920; J2930; J3370; J7030; J7060; J7620; Q0092